=== PATIENT | male | born 1945 | race Caucasian/White ===

== ENCOUNTER 2018-03-19 12:00 | Day surgery (SDC) | payer MEDICARE ==
[2018-03-17 12:39] VITALS: BMI 25.7
--- NOTE | 2018-03-19 11:44 | P.GSHP ---
History of Present Illness H&P Date: 03/19/18 CHIEF COMPLAINT: Colon screen HISTORY OF PRESENT ILLNESS: The patient is a 72-year-old male who presents for colon screen. Lower endoscopy was offered for further evaluation and management. PAST MEDICAL HISTORY: Please see list. PAST SURGICAL HISTORY: Please see list. MEDICATIONS: Please see list. ALLERGIES: Please see list. SOCIAL HISTORY: No illicit drug use FAMILY HISTORY: No reports of Crohn disease or ulcerative colitis. REVIEW OF ORGAN SYSTEMS: CONSTITUTIONAL: No reports of fevers or chills. PHYSICAL EXAM: VITAL SIGNS: Stable GENERAL: Well-developed pleasant in no acute distress. HEENT: No scleral icterus. Extraocular movements grossly intact. Moist buccal mucosa. NECK: Supple without lymphadenopathy. CHEST: Unlabored respirations. Equal bilateral excursions. CARDIOVASCULAR: Regular rate and rhythm. Distal 2+ pulses. ABDOMEN: Soft, nontender, nondistended. MUSCULOSKELETAL: No clubbing, cyanosis, or edema. ASSESSMENT: 1. Colon screen. PLAN: 1. 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, closed head injury 1989 History of Any Multi-Drug Resistant Organisms: MRSA Date of last positivie culture/infection: 2008 MDRO Source:: hip Past Surgical History: Back Surgery Additional Past Surgical History / Comment(s): "surgery for closed head injury", Past Anesthesia/Blood Transfusion Reactions: Family History of Problems w/ Anesthesia Additional Past Anesthesia/Blood Transfusion Reaction / Comment(s): "son- allergic to certain anesthesia due to his bad heart" Smoking Status: Former smoker - Past Family History Mother Family Medical History: Coronary Artery Disease (CAD), Diabetes Mellitus Additional Family Medical History / Comment(s): anxiety Father Family Medical History: Cancer Additional Family Medical History / Comment(s): lung ca Brother(s) Family Medical History: Cancer Sister(s) Family Medical History: Cancer Medications and Allergies Home Medications Medication Instructions Recorded Confirmed Type Clopidogrel [Plavix] 75 mg PO DAILY #30 tab 01/30/16 03/17/18 Rx Lisinopril [Zestril] 40 mg PO DAILY #30 tablet 01/30/16 03/17/18 Rx Atorvastatin [Lipitor] 80 mg PO DAILY 03/17/18 03/17/18 History Insulin NPH Hum/Reg Insulin Hm 30 unit SQ BID 03/17/18 03/17/18 History [Novolin 70-30 100 Unit/ml Vial] Naproxen 500 mg PO DAILY 03/17/18 03/17/18 History Allergies Allergy/AdvReac Type Severity Reaction Status Date / Time seasonal allergies Allergy Unknown Uncoded 03/17/18 12:25
[~2018-03-19 12:00] MED LIST: LACTATED RINGERS 1,000 ML IV SCH
--- NOTE | 2018-03-19 12:24 | P.PN ---
Progress Note - Text Progress Note Date: 03/19/18 Patient chose to re-schedule 03/19/18
== END 2018-03-19 14:00 | disposition home or self-care (01) ==
LOC: ORWHC2ENDO 12:00
PROVIDERS: ATTEND Surgery Plastic and Reconstructive Surgery
DX: Z12.11 Encounter for screening for malignant neoplasm of colon (principal); Z53.20 Procedure and treatment not carried out because of patient's decision for unspecified reasons

== ENCOUNTER 2018-04-08 10:56 | Emergency (ER) | payer MEDICARE ==
[2018-04-08] MEDS ORDERED: MORPHINE SULFATE 2 MG/ML SYRINGE IM STA (11:06)
[2018-04-08] MEDS ORDERED: KETOROLAC 60 MG/2 ML VIAL IM STA (11:06)
[2018-04-08] MEDS ORDERED: DIAZEPAM 5 MG/ML 2 ML INJ IM ONE (11:09)
[2018-04-08 11:10] VITALS: RESP 16; TEMP 98.3
--- NOTE | 2018-04-08 11:14 | ED ---
General Adult HPI - General Stated complaint: back pain Time Seen by Provider: 04/08/18 10:56 Source: RN notes reviewed - History of Present Illness Initial comments: This is a 72-year-old male who presents emergency department stating that he has had chronic back pain since 2007. Patient states he's had no injury since. Patient states he hasn't been taking pain medication because he is switched doctors. Patient states all of a sudden he got up this morning his back was much more tender there was difficult for him to stand up. Patient states occasionally the pain will radiate down into his right buttocks. Patient denies any numbness or weakness. Patient denies any difficulty with urination or urinary incontinence. Patient states the pain is the same pain he is always had it just was a little worse today than normal which has occurred many times over the last 10 years. - Related Data Home Medications Medication Instructions Recorded Confirmed Atorvastatin [Lipitor] 80 mg PO DAILY 03/17/18 04/08/18 Insulin NPH Hum/Reg Insulin Hm 30 unit SQ BID 03/17/18 04/08/18 [Novolin 70-30 100 Unit/ml Vial] Naproxen 500 mg PO BID PRN 03/17/18 04/08/18 Antacid 750 Mg (Otc) 750 mg PO QID PRN 04/08/18 04/08/18 Magnesium 600 mg PO DAILY 04/08/18 04/08/18 Muscle Massage Pain Relief Gel 1 applic TOPICAL DAILY PRN 04/08/18 04/08/18 Previous Rx's Medication Instructions Recorded Clopidogrel [Plavix] 75 mg PO DAILY #30 tab 01/30/16 Lisinopril [Zestril] 40 mg PO DAILY #30 tablet 01/30/16 Cyclobenzaprine [Flexeril] 10 mg PO TID #20 tab 04/08/18 Ibuprofen [Motrin] 600 mg PO Q6HR PRN #20 tab 04/08/18 Allergies Allergy/AdvReac Type Severity Reaction Status Date / Time seasonal allergies Allergy Unknown Uncoded 03/17/18 12:25 Review of Systems ROS Statement: Those systems with pertinent positive or pertinent negative responses have been documented in the HPI. ROS Other: All systems not noted in ROS Statement are negative. 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, closed head injury 1989 History of Any Multi-Drug Resistant Organisms: MRSA Date of last positivie culture/infection: 2008 MDRO Source:: hip Past Surgical History: Back Surgery Additional Past Surgical History / Comment(s): "surgery for closed head injury", Past Anesthesia/Blood Transfusion Reactions: Family History of Problems w/ Anesthesia Additional Past Anesthesia/Blood Transfusion Reaction / Comment(s): "son- allergic to certain anesthesia due to his bad heart" Smoking Status: Former smoker - Past Family History Mother Family Medical History: Coronary Artery Disease (CAD), Diabetes Mellitus Additional Family Medical History / Comment(s): anxiety Father Family Medical History: Cancer Additional Family Medical History / Comment(s): lung ca Brother(s) Family Medical History: Cancer Sister(s) Family Medical History: Cancer General Exam - General Exam Comments Initial Comments: GENERAL: Patient is well-developed and well-nourished. Patient is nontoxic and well- hydrated and is in mild distress. ENT: Neck is soft and supple. No significant lymphadenopathy is noted. Oropharynx is clear. Moist mucous membranes. Neck has full range of motion without eliciting any pain. EYES: The sclera were anicteric and conjunctiva were pink and moist. Extraocular movements were intact and pupils were equal round and reactive to light. Eyelids were unremarkable. SKIN: Skin is clear with no lesions or rashes and otherwise unremarkable. NEUROLOGIC: Patient is alert and oriented x3. Cranial nerves II through XII are grossly intact. Motor and sensory are also intact. Normal speech, volume and content. Symmetrical smile. MUSCULOSKELETAL: Normal extremities with adequate strength and full range of motion. Patient has normal straight leg raise. Patient's normal sensation. Patient has normal perineum sensation. LYMPHATICS: No significant lymphadenopathy is noted PSYCHIATRIC: Normal psychiatric evaluation. Course Vital Signs 04/08/18 11:00 Temperature 98.3 F Pulse Rate 94 Respiratory 16 Rate Blood Pressure 105/51 O2 Sat by Pulse 98 Oximetry Disposition Clinical Impression: Acute exacerbation of chronic low back pain Disposition: HOME SELF-CARE Condition: Good Instructions: Chronic Back Pain (ED) Prescriptions: Cyclobenzaprine [Flexeril] 10 mg PO TID #20 tab Ibuprofen [Motrin] 600 mg PO Q6HR PRN #20 tab PRN Reason: For pain Is patient prescribed a controlled substance at d/c from ED?: No Referrals: Sky Mims MD [Primary Care Provider] - 1-2 days Time of Disposition: 11:58
--- NOTE | 2018-04-08 11:37 | XR ---
EXAMINATION TYPE: XR lumbosacral spine min 4V DATE OF EXAM: 04/08/2018 COMPARISON: NONE HISTORY: Pain low back radiating to right leg TECHNIQUE: Five-view lumbar spine FINDINGS: There 5 lumbar-type vertebral bodies. The pedicles are intact. Facets appear with minimal d egenerative change. Mild spondylosis is present. Disc heights are preserved. Vertebral body heights a re preserved. Vascular calcifications within the aorta. IMPRESSION: 1. No acute osseous abnormality. MRI could be performed for radicular symptoms.
[2018-04-08 12:37] VITALS: BP 107/52; PULSE 98
== END 2018-04-08 12:30 ==
LOC: EC 10:56
DX: G89.29 Other chronic pain (principal); M54.5 Low back pain; E11.9 Type 2 diabetes mellitus without complications; E78.5 Hyperlipidemia, unspecified; Z86.14 Personal history of Methicillin resistant Staphylococcus aureus infection; Z98.890 Other specified postprocedural states; Z87.891 Personal history of nicotine dependence; Z86.73 Personal history of transient ischemic attack (TIA), and cerebral infarction without residual deficits; Z79.4 Long term (current) use of insulin; Z79.899 Other long term (current) drug therapy; Z91.09 Other allergy status, other than to drugs and biological substances
CPT/HCPCS: 72110; 99284; 96372 ×3; J3360; J1885; J2270

== ENCOUNTER → 2018-05-07 | Outpatient (CLI) | payer MEDICARE ==
--- NOTE | 2018-05-07 11:55 | MR ---
EXAMINATION TYPE: MR lumbar spine wo/w con DATE OF EXAM: 05/07/2018 COMPARISON: Lumbar spine x-ray April 08, 2018 HISTORY: Low back pain, previous surgery TECHNIQUE: Multiplanar, multisequence images of the lumbar spine is performed without and with IV contrast, util izing 7.5 mL intravenous Gadavist FINDINGS: Sagittal images of the lumbar spine show vertebral body heights to appear satisfactory. The re is subtle grade 1 anterolisthesis of L3 on L4 redemonstrated. Multilevel disc desiccation is seen but disc space heights are fairly well-maintained. No large posterior disc herniations are seen on sa gittal images. The conus medullaris is normal in position and signal ending at T12-L1 disc space. Mi ld to moderate multilevel anterior spurring is redemonstrated. The bone marrow signal intensity is w ithin normal limits. No suspicious enhancement is seen. Axial images at T12-L1 level shows mild broad disc bulge with tiny central disc protrusion component minimally effacing anterior thecal sac, bilateral neural foramina are patent. Axial images at L1-L2 level show mild to moderate broad disc bulge mildly effacing anterior thecal sa c on axial image 25. There is mild facet arthropathy and ligamentum flavum hypertrophy minimally effa cing posterior lateral thecal sac. Bilateral neural foramina remain patent. Axial images at L2-L3 level show mild ligamentum flavum hypertrophy bilaterally and mild broad disc b ulge mildly effacing anterior thecal sac and causing asymmetric mild to moderate right-sided neural f oraminal narrowing on sagittal image 11 and axial image 20. Left-sided neural foramina is patent. Axial images at L3-L4 level show spondylolisthesis with moderate facet arthropathy and ligamentum fla vum hypertrophy. There is effacement of the lateral thecal sac. There is posterior decompression with laminectomy defects and spinous process resection. There is moderate broad disc bulge effacing anter ior thecal sac. There is moderate left and severe right-sided neural foraminal narrowing with persist ent encroachment along inferior margin of right L3 nerve identified. Axial images at L4-L5 level show bilateral laminectomy defects and spinous process resection. There i s mild to moderate facet arthropathy bilaterally. There is broad-based posterior disc protrusion mild ly effacing anterior thecal sac. There is mild to moderate left and mild right-sided anterior inferio r neural foraminal narrowing. Axial images at L5-S1 level show moderate facet arthropathy bilaterally. There is broad disc bulge wi th central disc protrusion component minimally effacing anterior thecal sac. Bilateral neural foramin a show mild narrowing. There are prominent extrarenal pelvises bilaterally with simple appearing para pelvic cysts in the left kidney seen on axial image 24. IMPRESSION: Postsurgical change L3 and L4 level. Stable subtle grade 1 anterolisthesis L3 on L4. Mult ilevel degenerative changes as detailed above. Encroachment along right L3 nerve is noted.
== END | disposition home or self-care (01) ==
LOC: RADMRIMAIN 09:36
PROVIDERS: ATTEND Internal Medicine
DX: M43.16 Spondylolisthesis, lumbar region (principal); M47.816 Spondylosis without myelopathy or radiculopathy, lumbar region; Z98.890 Other specified postprocedural states
CPT/HCPCS: 82565; 72158; 36415; A9581

== ENCOUNTER → 2018-12-21 | Outpatient (CLI) | payer MEDICARE ==
--- NOTE | 2018-12-21 15:19 | MR ---
EXAMINATION TYPE: MR foot RT wo/w con DATE OF EXAM: 12/21/2018 COMPARISON: None HISTORY: Skin ulcer of rt foot/5th toe present for 2 months. CONTRAST: Standard multiplanar, multisequence MRI departmental protocol utilizing 7 mL intravenous Gadavist erasmo olinium contrast. Imaging is performed of the right foot. FINDINGS: Loss of normal subcutaneous fat corresponding to also are is seen along plantar surface at level of fifth metatarsal head axial image 1 and corresponding sagittal image 16. There is some inhom ogeneity of fat saturation pulse through the fifth toe but no obvious adjacent edema or enhancement i nvolving the fifth metatarsal head. No significant enhancement or edema is seen at this level. There is flexion in the distal fifth toe with perhaps mild edema and small ulcer along plantar surface at l evel of fifth distal phalanx sagittal image 16, adjacent bone shows no obvious edema. Evaluation at t his level slightly suboptimal due to flexion in varus positioning as well as small size of the fifth distal phalanx with [id number] including entire forefoot and midfoot as well as significant portio n of hindfoot. Flexion in second through fifth toes is noted. Bone marrow signal intensity is preserved without susp icious edema or enhancement in the visualized midfoot or forefoot. Joint spaces are maintained. Taty l sinus tarsi fat is seen. Visualized portion of Plantar fascia is intact. IMPRESSION: Soft tissue ulceration plantar surface fifth digit without MRI evidence for acute celluli tis or osteomyelitis.
== END | disposition home or self-care (01) ==
LOC: RADMRIMAIN 12:36
PROVIDERS: ATTEND Internal Medicine
DX: L97.512 Non-pressure chronic ulcer of other part of right foot with fat layer exposed (principal)
CPT/HCPCS: 73720; A9585

== ENCOUNTER → 2019-03-29 | Outpatient (CLI) | payer MEDICARE ==
--- NOTE | 2019-03-29 11:28 | CT ---
EXAMINATION TYPE: CT angio neck DATE OF EXAM: 03/29/2019 HISTORY: Right-sided carotid artery disease COMPARISON: Ultrasound 01/28/1960 CT DLP: 369 mGycm. Automated Exposure Control for Dose Reduction was Utilized. TECHNIQUE: CTA scan of the neck is performed , patient injected with 50mL of Isovue 370, axial image s are obtained, coronal and sagittal reformatted images are reviewed. Three-D reconstructed images ar e created on an independent workstation and reviewed. FINDINGS: There is atherosclerotic change involving the aortic arch and origins of the great vessels. There appears to be 50% stenosis of the proximal right brachiocephalic artery. Moderate plaque at th e origin of the left common carotid artery. 50% stenosis suspected. There is mild atherosclerotic plaque involving the left carotid bulb and bifurcation with no signific ant stenosis identified. On the right there is mixed soft and calcified plaque. There appears to be a severe greater than 80% stenosis involving the proximal ICA extending to centimeters cephalad. Incidental note is made of air within the venous system likely iatrogenic. Hypertrophic and degenerative changes seen at multiple levels compatible severe multilevel degenerati ve disc disease. Multilevel facet arthropathy and canal stenosis and foraminal encroachment suspected . Emphysematous changes involving the lung apices. Portions of the left subclavian artery do not enhanc e. IMPRESSION: 1. There is a severe greater than 80% stenosis involving the right proximal internal carotid artery. 2. Diffuse atherosclerotic changes involving the origins of the great vessels as discussed above. 3. No significant hemodynamic stenosis noted involving the proximal left internal carotid artery. 4. There is a nonenhancing of portions of subclavian artery on the left. 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 This can be associated with subclavian steal phenomenon. Correlate clinically.
== END | disposition home or self-care (01) ==
LOC: RADCTMAIN 08:59
PROVIDERS: ATTEND Internal Medicine
DX: I65.23 Occlusion and stenosis of bilateral carotid arteries (principal); I70.0 Atherosclerosis of aorta; I77.89 Other specified disorders of arteries and arterioles
CPT/HCPCS: 70498; Q9967

== ENCOUNTER 2019-04-01 06:36 | Day surgery (SDC) | payer MEDICARE ==
[2019-03-30 10:49] VITALS: BMI 23.2
[~2019-04-01 06:36] MED LIST changes: +LIDOCAINE 1% 20 ML VIAL (10MG/ML) FOR IV START INTRADERMA PRN
--- NOTE | 2019-04-01 06:57 | P.GSHP ---
History of Present Illness H&P Date: 04/01/19 CHIEF COMPLAINT: GERD HISTORY OF PRESENT ILLNESS: The patient is a 73-year-old male who presents reports gastroesophageal reflux disease. Upper endoscopy was offered for further evaluation and management. PAST MEDICAL HISTORY: Please see list. PAST SURGICAL HISTORY: Please see list. MEDICATIONS: Please see list. ALLERGIES: Please see list. SOCIAL HISTORY: No illicit drug use FAMILY HISTORY: No reports of Crohn disease or ulcerative colitis. REVIEW OF ORGAN SYSTEMS: CONSTITUTIONAL: No reports of fevers or chills. GI: Denies any blood in stools or constipation. PHYSICAL EXAM: VITAL SIGNS: Stable GENERAL: Well-developed and pleasant in no acute distress. HEENT: No scleral icterus. Extraocular movements grossly intact. Moist buccal mucosa. NECK: Supple without lymphadenopathy. CHEST: Unlabored respirations. Equal bilateral excursions. CARDIOVASCULAR: Regular rate and rhythm. Distal 2+ pulses. ABDOMEN: Soft, nondistended. MUSCULOSKELETAL: No clubbing, cyanosis, or edema. ASSESSMENT: 1. Gastroesophageal reflux disease PLAN: 1. Recommend proceeding with an upper endoscopy Past Medical History Past Medical History: Chest Pain / Angina, CVA/TIA, Diabetes Mellitus, GERD/Reflux, Hyperlipidemia, Hypertension, Memory Impairment Additional Past Medical History / Comment(s): Hx sepsis, migraines, CVA X2 or 3 - has loss of short term memory. Hx closed head injury in 1989. History of Any Multi-Drug Resistant Organisms: MRSA Date of last positivie culture/infection: 2008 MDRO Source:: RT HIP Past Surgical History: Back Surgery Additional Past Surgical History / Comment(s): "Surgery for closed head injury", COLONOSCOPY, SURGERY FOR EPIDIDYMITIS. Past Anesthesia/Blood Transfusion Reactions: Family History of Problems w/ Anesthesia Additional Past Anesthesia/Blood Transfusion Reaction / Comment(s): "Son allergic to certain anesthesia due to his bad heart." Past Psychological History: No Psychological Hx Reported Smoking Status: Former smoker Past Alcohol Use History: None Reported Additional Past Alcohol Use History / Comment(s): Quit smoking in 1989, smoked for 20 yrs, 1 1/2 PPD. Past Drug Use History: None Reported - Past Family History Mother Family Medical History: Coronary Artery Disease (CAD), Diabetes Mellitus Additional Family Medical History / Comment(s): anxiety Father Family Medical History: Cancer Additional Family Medical History / Comment(s): Lung cancer. Brother(s) Family Medical History: Cancer Sister(s) Family Medical History: Cancer Medications and Allergies Home Medications Medication Instructions Recorded Confirmed Type Clopidogrel [Plavix] 75 mg PO DAILY #30 tab 01/30/16 04/01/19 Rx Atorvastatin [Lipitor] 80 mg PO DAILY 03/17/18 04/01/19 History Cyclobenzaprine [Flexeril] 10 mg PO TID #20 tab 04/08/18 04/01/19 Rx HYDROcodone/APAP 5-325MG [[place] 1 tab PO Q6HR PRN 02/24/19 04/01/19 History 5-325] Insulin Aspart [NovoLOG] 0 units INJ ACHS PRN 02/24/19 04/01/19 History Insulin Glargine,Hum.rec.anlog 23 units SQ HS 02/24/19 04/01/19 History [Elbert Rutherford] Ranitidine HCl 150 mg PO DAILY 02/24/19 04/01/19 History Lisinopril [Zestril] 40 mg PO QAM 03/30/19 04/01/19 History Allergies Allergy/AdvReac Type Severity Reaction Status Date / Time seasonal allergies Allergy Unknown Uncoded 03/30/19 10:36
[2019-04-01 07:05] VITALS: TEMP 97.6
[2019-04-01] MEDS ORDERED: PROPOFOL 10 MG/ML 20 ML VIAL IV ONE (07:08)
[2019-04-01] MEDS ORDERED: LIDOCAINE 1% INJ 10MG/ML (20 ML MDV) ONE (07:08)
[2019-04-01 07:19] LABS: Glucose,Whole Blood 298 mg/dL (75-99)
--- NOTE | 2019-04-01 07:29 | P.PCN ---
Date of Procedure: 04/01/19 Description of Procedure: PREOPERATIVE DIAGNOSIS: Gastroesophageal reflux disease. Dysphagia POSTOPERATIVE DIAGNOSIS: Gastroesophageal reflux disease. Diaphragmatic hiatal hernia Esophageal stricture, distal esophagus. Dysphagia Gastritis OPERATION: Esophagogastroduodenoscopy with ballon esophageal dilation, 20 mm Esophagogastroduodenoscopy with biopsies along antrum SURGEON: Yesenia Hoover MD ANESTHESIA: MAC. INDICATIONS: The patient is a 73-year-old male who presents with a history of reflux disease and dysphagia. Benefits and risks of the procedure were described. Informed consent was obtained. DESCRIPTION: The patient was brought into the endoscopy suite and laid in the left lateral decubitus position. A Olympus gastroscope was carefully passed along the posGastric polyps were found. The scope was passed to the duodenum which was unremarkable up to the third portion. Retroflexion of the scope confirmed Hill grade 4 lower esophageal valve with a Hill grade 3, lower esophageal valve identified. Cold forceps biopsies were obtained along antrum for gastritis. A 2 cm hiatal hernia was confirmed. LA grade A erosive esophagitis was found. A [employer] 20 mm balloon was inserted along the scope into the distal esophagus where a mild stricture was identified. Balloon was dilated for up to 1 minute. No full-thickness injury was found along the mucosa. The stomach was desufflated. The patient tolerated the procedure well. FINDINGS: Diaphragmatic hiatal hernia 2 cm. Balloon dilation 20 mm. Hill grade 3 lower esophageal valve. LA grade A erosive esophagitis. No active duodenitis. Chronic gastritis RECOMMENDATIONS: Upper endoscopy as needed. Plan - Discharge Summary Discharge Rx Participant: No New Discharge Prescriptions: No Action Clopidogrel [Plavix] 75 mg PO DAILY #30 tab Atorvastatin [Lipitor] 80 mg PO DAILY Cyclobenzaprine [Flexeril] 10 mg PO TID #20 tab Ranitidine HCl 150 mg PO DAILY HYDROcodone/APAP 5-325MG [[place] 5-325] 1 tab PO Q6HR PRN PRN Reason: Pain Insulin Glargine,Hum.rec.anlog [[place] Solostar] 23 units SQ HS Insulin Aspart [NovoLOG] 0 units INJ ACHS PRN PRN Reason: TO SCALE Lisinopril [Zestril] 40 mg PO QAM Discharge Medication List Clopidogrel [Plavix] 75 mg PO DAILY #30 tab 01/30/16 [Rx] Atorvastatin [Lipitor] 80 mg PO DAILY 05/22/18 [History] Cyclobenzaprine [Flexeril] 10 mg PO TID #20 tab 04/08/18 [Rx] HYDROcodone/APAP 5-325MG [[place] 5-325] 1 tab PO Q6HR PRN 02/24/19 [History] Insulin Aspart [NovoLOG] 0 units INJ ACHS PRN 02/24/19 [History] Insulin Glargine,Hum.rec.anlog [Touporsha Solostалександр] 23 units SQ HS 02/24/19 [History] Ranitidine HCl 150 mg PO DAILY 02/24/19 [History] Lisinopril [Zestril] 40 mg PO QAM 03/30/19 [History] Patient Instructions/Handouts: *Surgery [facility] - (Anesthesia) Endoscopy Discharge Instructions, Upper Endoscopy (DC)
[2019-04-01 07:39] VITALS: BP 104/54; PULSE 73; RESP 18
[2019-04-01 07:48] LABS: Glucose,Whole Blood 283 mg/dL (75-99)
== END 2019-04-01 08:04 | disposition home or self-care (01) ==
LOC: ORWHC2ENDO 06:36
PROVIDERS: ATTEND Surgery Plastic and Reconstructive Surgery
DX: K44.9 Diaphragmatic hernia without obstruction or gangrene (principal); K21.9 Gastro-esophageal reflux disease without esophagitis; K22.2 Esophageal obstruction; K29.50 Unspecified chronic gastritis without bleeding; E11.9 Type 2 diabetes mellitus without complications; E78.5 Hyperlipidemia, unspecified; I10 Essential (primary) hypertension; Z79.4 Long term (current) use of insulin; Z82.49 Family history of ischemic heart disease and other diseases of the circulatory system; I69.311 Memory deficit following cerebral infarction; Z87.891 Personal history of nicotine dependence
CPT/HCPCS: 88305; 43239; 43249; J2001; J2704; C1726